=== PATIENT | female | born 1940 | race Caucasian/White ===

== ENCOUNTER → 2020-12-23 09:07 | Outpatient (BNVA) | payer MEDICARE, BC, SELFPAY | PROVIDERS: PCP Family Medicine; Visit Provider Family Medicine | DX: R30.0 Dysuria (principal) | CPT/HCPCS: 81000 ==

== ENCOUNTER 2021-01-02 20:18 | Observation (INO) | payer MEDICARE, BC, SELFPAY ==
[2021-01-02] VITALS (7 sets, daily range): BP systolic 144–170; BP diastolic 53–62; PULSE 63–75; RESP 16–18; O2SAT 94–100; BMI 27.4
--- NOTE | 2021-01-02 20:25 | ECG_ITS ---
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 Measurements Intervals [place] Rate: 68 P: [place]: QRS: -50 QRSD: 105 T: 66 QT: 378 QTc: 403 Interpretive Statements SINUS RHYTHM WITH PAC'S LEFT ANTERIOR FASCICULAR BLOCK [QRS AXIS <= -45, QR IN I, RS IN II] POSSIBLE ANTERIOR MYOCARDIAL INFARCTION , PROBABLY OLD [30 ms Q WAVE IN V3/V4, OR R < 0.2 mV IN V4] No previous ECG available for comparison Electronically Signed On 01-05-2021 21:45:55 CDT by Hawa Manzanares M.D. [id number]
--- NOTE | 2021-01-02 20:36 | CTR_ITS ---
PROCEDURE INFORMATION: Exam: CT Head Without Contrast Exam date and time: 01/02/2021 8:36 PM Age: 80 years old Clinical indication: Dizziness and syncope and collapse; Patient HX: Syncope with dizziness and altered gait. ; Additional info: Evaluate for mass TECHNIQUE: Imaging protocol: Computed tomography of the head without contrast. Radiation optimization: All CT scans at this facility use at least one of these dose optimization techniques: automated exposure control; mA and/or kV adjustment per patient size (includes targeted exams where dose is matched to clinical indication); or iterative reconstruction. COMPARISON: No relevant prior studies available. RADIATION DOSE METRICS: Total DLP (mGy-cm): 772.99 FINDINGS: Brain: There is mild cerebral atrophy. There is mild diffuse heterogeneity of the white matter attenuation, consistent with chronic white matter ischemic changes. No intracranial hemorrhage. No intracranial mass identified. No midline shift of the brain. Bosch matter and white matter interfaces are preserved. Cerebral ventricles: No ventriculomegaly. Paranasal sinuses: Visualized sinuses are unremarkable. No fluid levels. Mastoid air cells: Visualized mastoid air cells are well aerated. Orbital cavity: Symmetric orbits. Bilateral lens replacements. Bones/joints: Unremarkable. No acute fracture. Soft tissues: Unremarkable. CT/CT head wo con* [id number] IMPRESSION: 1. Negative for acute intracranial abnormality. 2. Negative for intracranial mass. Radiation Dose CTDIVOL = (mGy): DLP = 772.99 (mGy-cm)
--- NOTE | 2021-01-02 20:36 | CTR_ITS ---
PROCEDURE INFORMATION: Exam: CT Angiography Head With Contrast, Arteriography Exam date and time: 01/02/2021 8:36 PM Age: 80 years old Clinical indication: Syncope and collapse; Patient HX: Syncope with dizziness and altered gait. ; Additional info: Gait instability TECHNIQUE: Imaging protocol: Computed tomography angiography of the head with contrast. Exam focused on the arteries. 3D rendering (Not supervised by radiologist): MIP and/or 3D reconstructed images were created by the technologist. Radiation optimization: All CT scans at this facility use at least one of these dose optimization techniques: automated exposure control; mA and/or kV adjustment per patient size (includes targeted exams where dose is matched to clinical indication); or iterative reconstruction. Contrast material: VISI 320; Contrast volume: 95 ml; Contrast route: INTRAVENOUS (IV); COMPARISON: CT head wo con* [id number] 01/02/2021 8:42 PM RADIATION DOSE METRICS: Total DLP (mGy-cm): 1906.41 FINDINGS: ANTERIOR CIRCULATION: Right internal carotid artery: Unremarkable. Intracranial segment is patent with no significant stenosis. No aneurysm. Right middle cerebral artery: Unremarkable. No occlusion or significant stenosis. No aneurysm. Right anterior cerebral artery: Unremarkable. No occlusion or significant stenosis. No aneurysm. Left internal carotid artery: Unremarkable. Intracranial segment is patent with no significant stenosis. No aneurysm. Left middle cerebral artery: Unremarkable. No occlusion or significant stenosis. No aneurysm. Left anterior cerebral artery: Unremarkable. No occlusion or significant stenosis. No aneurysm. POSTERIOR CIRCULATION: Right vertebral artery: Unremarkable. No occlusion or significant stenosis. No aneurysm. Left vertebral artery: Unremarkable. No occlusion or significant stenosis. No aneurysm. Basilar artery: Unremarkable. No occlusion or significant stenosis. No aneurysm. Right posterior cerebral artery: Unremarkable. No occlusion or significant stenosis. No aneurysm. Left posterior cerebral artery: Unremarkable. No occlusion or significant stenosis. No aneurysm. Brain: No definite mass, mass effect, or midline shift. Cerebral ventricles: No ventriculomegaly. Bones/joints: Unremarkable. No acute fracture. Soft tissues: Unremarkable. IMPRESSION: No intracranial large arterial vessel significant stenosis or occlusion. PROCEDURE INFORMATION: Exam: CT Angiography Neck With Contrast Exam date and time: 01/02/2021 8:36 PM Age: 80 years old Clinical indication: Syncope and collapse; Patient HX: Syncope with dizziness and altered gait. ; Additional info: Gait instability TECHNIQUE: Imaging protocol: Computed tomography angiography of the neck with contrast. 3D rendering (Not supervised by radiologist): MIP and/or 3D reconstructed images were created by the technologist. Radiation optimization: All CT scans at this facility use at least one of these dose optimization techniques: automated exposure control; mA and/or kV adjustment per patient size (includes targeted exams where dose is matched to clinical indication); or iterative reconstruction. Contrast material: VISI 320; Contrast volume: 95 ml; Contrast route: INTRAVENOUS (IV); COMPARISON: CT head wo con* [id number] 01/02/2021 8:42 PM RADIATION DOSE METRICS: Total DLP (mGy-cm): 1906.41 FINDINGS: Right common carotid artery: No stenosis. No dissection or occlusion. Right internal carotid artery: No stenosis of the extracranial segment. No dissection or occlusion. Right external carotid artery: No occlusion or stenosis of the origin. Left common carotid artery: No stenosis. No dissection or occlusion. Left internal carotid artery: No stenosis of the extracranial segment. No dissection or occlusion. Left external carotid artery: No occlusion or stenosis of the origin. Right vertebral artery: No stenosis. No dissection or occlusion. Left vertebral artery: No stenosis. No dissection or occlusion. Left subclavian artery: Small volume eccentric noncalcified plaque in the proximal left subclavian artery. Mild stenosis less than 50%. Thyroid: Small subcentimeter nodules throughout the thyroid lobes. No dedicated follow-up recommended. No thyroid gland enlargement. Soft tissues: Normal. No significant soft tissue swelling. Bones/joints: No acute fracture. Lungs: Mild severity emphysema. CT/CT angio headneck* [id number] IMPRESSION: No carotid artery stenosis or vessel occlusion in the neck. COMMENTS: Consistent with the [employer]'s Incidental Findings Committee white paper (J Am Destiny Radiol 2015): In patients aged 35 years and older with an incidental thyroid nodule equal to or greater than 1.[address], MRI or extrathyroidal US, further evaluation with dedicated thyroid US is recommended for patients with normal life expectancy and without comorbidities. For smaller nodules without suspicious features, no further evaluation or follow up is recommended. REFERENCES: NASCET CRITERIA. The degree of internal carotid artery stenosis is based on NASCET criteria. Normal is no stenosis. Mild is less than 50% stenosis. Moderate is 50-69% stenosis. Severe is 70% to 99% stenosis. Total occlusion is no detectable patent lumen. Radiation Dose CTDIVOL = (mGy): DLP = 1906.41~1906.41 (mGy-cm)
[2021-01-02] MEDS: iodixanol 320 mg/mL 100mL Btl IV (20:48)
[2021-01-02 20:57] LABS: Basophils # 0.1 10^3/uL (0.0-0.1); Eosinophils # 0.1 10^3/uL (0.0-0.8); Eosinophils % 1.1 %; Hematocrit 44.9 % (37.0-47.0); Hemoglobin 14.8 g/dL (11.5-15.3); Lymphocytes # 4.5 10^3/uL (0.8-4.8); Lymphocytes % 55.6 %; Mean Corpuscular Hemoglobin 31.4 pg (28.0-34.0); Mean Corpuscular Volume 95.1 fl (81-99); Mean Platelet Volume 10.6 fL (7.4-10.4); Monocytes # 0.6 10^3/uL (0.2-0.9); Monocytes % 7.6 %; Neutrophils # 2.77 10^3/uL (1.8-7.7); Neutrophils % 34.6 %; Nucleated Red Blood Cells % 0 %; Platelet Count 236 10^3/cmm (130-400); Red Blood Count 4.72 10^6/uL (4.1-5.3); Red Cell Distribution Width 12.6 % (12.1-15.1)
[2021-01-02 21:13] LABS: Troponin T (5th) Once 11 ng/L (0-10)
[2021-01-02 21:14] LABS: Alanine Aminotransferase 13 U/L (0-33); Albumin Level 4.5 g/dL (3.5-5.2); Alkaline Phosphatase 102 IU/L (35-105); Anion Gap 18.2 (5-19); Aspartate Amino Transferase 20 U/L (0-32); Blood Urea Nitrogen 12 mg/dL (8-23); Calcium 10.5 mg/dL (8.5-10.5); Carbon Dioxide 23 mmol/L (22-29); Chloride 103 mmol/L (98-107); Glucose 118 mg/dL (65-115); Lipase 40 U/L (13-60); Osmolality Calculated 291 mOsm/kg (285-295); Potassium 4.2 mmol/L (3.5-5.1); Sodium 140 mmol/L (136-145); Total Bilirubin 0.3 mg/dL (0.15-1.2); Total Protein 7.5 g/dL (6.6-8.7)
--- NOTE | 2021-01-02 21:14 | W.ED.GENADLT ---
HPI - General Adult General: Chief complaint: Syncope Stated complaint: in and out of consciousness Time Seen by Provider: 01/02/21 20:24 History of Present Illness: HPI narrative: HPI: [80]yo patient w/ hx of HTN BIBA for concern for s/p acute episodes of syncope x 3 which occured 30 minutes ago while patient was sitting down outside and watching her grandon's baseball game. The episodes patient's daughter who reports that patient was going in and out of consciousness and was confused after. Patient has no history of seizures. Patient was noted to lose her bladder. Patient had no complaints of chest pain shortness breath or palpitation during these episodes. On arrival, the patient denies any chest pain, SOB, palpitations, focal neurological weakness in the arms or legs. Patient could not recall exactly what happened, but denied any post-ictal confusion, bowel or bladder incontinence after the incident. Patient denies any prior episode of syncope. Denies any chest pain, shortness, palpitation, abdominal pain or back pain prior to the episode of syncope. No recent exertional chest pain or shortness of breath. Denies vertigo or disequilibrium. The episode of syncope was not preceded by any prodromes including nausea, pallor, or diaphoresis. No symptoms of diarrhea, hematuria, dysuria, melena or hematochezia. No prior documented hx of anemia requiring blood transfusions, VTE, or aortic aneurysm. Onset: 30 minutes ago Duration: x 3 episodes Location: outside Severity: moderate Review of Systems Narrative: Constitutional: No fever, no chills. HEENT: No vision changes CV: No chest pain, no palpitations PULM: No productive cough, no dyspnea. GI: No abdominal pain, no N/V/D. : No Dysuria MSKEL: No muscle pain SKIN: No new rashes, no lesions. NEURO: No headache, no focal weakness. HEME: No visible bruises PSYCH: Normal mood PFSH ED PFSH: Medical History Osteoarthritis Surgical History Hx laparoscopic cholecystectomy Hx of colonoscopy Hx of hysterectomy JOHANA-BSO Hx of tonsillectomy Family History Mother , natural causes Diabetes Congestive heart failure Brother , Older past away of TB Diabetes both brothers Father FH: heart attack Social History Smoking and tobacco status: never smoked Alcohol intake: never Adopted: No Household members: children Housing: House Marital status: / Number of children: 4 Number of grandchildren: 12 Highest education level completed: Master's Degree service: No Current occupational status: retired Physical Exam Narrative: EXAM NARRATIVE: Head: Atraumatic Eyes: PERRL, conjunctiva without injection, eyes tracking ENT: Mucous membrane moist NECK: Supple without lymphadenopathy, no nuchal rigidity LUNGS: LCTAB CV: RRR ABDOMEN: Soft, nontender in all quadrants, no guarding or rebound tenderness, no CVA or flank tenderness bilaterally EXTREMITY: Normal ROM SKIN: No rash or erythema NEURO: Mental status: A/Ox3 CN II-XII tested and intact. Sensation intact to sharp/dull differentiation in all extremities. Motor: Normal tone and bulk. No abnormal movements appreciated. No pronator drift. Strength tested and 5/5 in bilateral wrist flexion/extension, elbow flexion/extension, shoulder abduction, straight leg raise, knee flexion/extension, ankle dorsiflexion/plantarflexion. Patient ambulates with a steady gait. Coordination: Finger to nose and heel to gonsalez testing intact bilaterally. PSYCH: Cooperative mood and affect Course Vital Signs: Vital signs: Vital Signs Temperature 98.2 F 01/03/21 07:51 Pulse Rate 74 01/03/21 07:51 Respiratory Rate 15 01/03/21 07:51 Blood Pressure 136/60 01/03/21 07:51 Pulse Oximetry 96 01/03/21 07:51 MDM - General Adult MDM Narrative: Medical decision making narrative: [80]yo patient w/ hx of HTN presenting to the ED with syncope x 3 episodes. -chest pain, -SOB, -palpitations. Currently symptom free. HDS. Neurologically intact. Given history, exam and workup, presentation not consistent with seizures given short time course, no postictal state, no seizure activity. Low suspicion for acute neurologic catastrophes to include ICH given lack of trauma, risk factors for bleeding diathesis. Low suspicion for vascular catastrophes to include PE, thoracic aortic dissection, AAA rupture. Presentation not consistent with acute life threatening arrhythmia, structural heart disease, electrical conduction abnormalities, or ACS. Workup: CBC, BMP, Troponin, ECG,CT brain Intervention: IVF, PO challenge, and serial reassessment EKG: No e/o STEMI. No evidence of Brugada?s sign, delta wave, epsilon wave, significantly prolonged QTc, or malignant arrhythmia. EKG showing NSR at HT of [68]. Normal axis. No ST elevations/depressions to suggest coronary occlusion. Normal ID, QRS, QT intervals. +Occasional PAC Hgb: 14 [9:51pm] On reassessment, patient continues to HDS. No acute complaints currently. No syncopal episode in the ER. Hs troponin of 11. 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 Patient has been able to ambulate in the ED without issues. No suspicion of neurogenic syncope at this time. However, given age, cardiovascular risk factors and co-rmbities, the patient will need inpatient workup for cardiac syncope. Patient agrees with the plan for inpatient admission at this time. Disposition: Admit to medicine, telemetry bed for cardiac monitoring and cardiology review. Lab Data: Labs: Lab Results 01/02/21 01/02/21 01/02/21 Range/Units 20:00 20:00 20:00 WBC 8.0 (4.0-10.0) 10^3/ uL RBC 4.72 (4.1-5.3) 10^6/u L Hgb 14.8 (11.5-15.3) g/dL Hct 44.9 (37.0-47.0) % MCV 95.1 (81-99) fl MCH 31.4 (28.0-34.0) pg MCHC 33.0 (30.0-36.0) g/dL RDW 12.6 (12.1-15.1) % Plt Count 236 (130-400) 10^3/c mm MPV 10.6 H (7.4-10.4) fL Neut % (Auto) 34.6 % Lymph % (Auto) 55.6 % Armstrong % (Auto) 7.6 % Eos % (Auto) 1.1 % Baso % (Auto) 1.0 % Neut # (Auto) 2.77 (1.8-7.7) 10^3/u L Lymph # (Auto) 4.5 (0.8-4.8) 10^3/u L Armstrong # (Auto) 0.6 (0.2-0.9) 10^3/u L Eos # (Auto) 0.1 (0.0-0.8) 10^3/u L Baso # (Auto) 0.1 (0.0-0.1) 10^3/u L Nucleated RBC % (a uto) 0 % Nucleated RBCs # 0.0 /100WBC D-Dimer (0-0.59) ug/mIFE U Sodium 140 (136-145) mmol/L Potassium 4.2 (3.5-5.1) mmol/L Chloride 103 (98-107) mmol/L Carbon Dioxide 23 (22-29) mmol/L Anion Gap 18.2 (5-19) BUN 12 (8-23) mg/dL Creatinine 0.8 (0.5-0.9) mg/dL GFR Calculation Not Reportable Glucose 118 H (65-115) mg/dL Calculated Osmolal ity 291 (285-295) mOsm/k g Calcium 10.5 (8.5-10.5) mg/dL Total Bilirubin 0.3 (0.15-1.2) mg/dL AST 20 (0-32) U/L ALT 13 (0-33) U/L Alkaline Phosphata se 102 (35-105) IU/L Troponin T Gen 5 n g/L 11 H (0-10) ng/L Total Protein 7.5 (6.6-8.7) g/dL Albumin 4.5 (3.5-5.2) g/dL Globulin 3.0 (1.3-4.6) g/dL Lipase 40 (13-60) U/L SARS-CoV-2 Ag (Rap id) (Negative) 01/02/21 01/02/21 Range/Units 20:00 21:55 WBC (4.0-10.0) 10^3/ uL RBC (4.1-5.3) 10^6/u L Hgb (11.5-15.3) g/dL Hct (37.0-47.0) % MCV (81-99) fl MCH (28.0-34.0) pg MCHC (30.0-36.0) g/dL RDW (12.1-15.1) % Plt Count (130-400) 10^3/c mm MPV (7.4-10.4) fL Neut % (Auto) % Lymph % (Auto) % Armstrong % (Auto) % Eos % (Auto) % Baso % (Auto) % Neut # (Auto) (1.8-7.7) 10^3/u L Lymph # (Auto) (0.8-4.8) 10^3/u L Armstrong # (Auto) (0.2-0.9) 10^3/u L Eos # (Auto) (0.0-0.8) 10^3/u L Baso # (Auto) (0.0-0.1) 10^3/u L Nucleated RBC % (a uto) % Nucleated RBCs # /100WBC D-Dimer <= 0.27 (0-0.59) ug/mIFE U Sodium (136-145) mmol/L Potassium (3.5-5.1) mmol/L Chloride (98-107) mmol/L Carbon Dioxide (22-29) mmol/L Anion Gap (5-19) BUN (8-23) mg/dL Creatinine (0.5-0.9) mg/dL GFR Calculation Glucose (65-115) mg/dL Calculated Osmolal ity (285-295) mOsm/k g Calcium (8.5-10.5) mg/dL Total Bilirubin (0.15-1.2) mg/dL AST (0-32) U/L ALT (0-33) U/L Alkaline Phosphata se (35-105) IU/L Troponin T Gen 5 n g/L (0-10) ng/L Total Protein (6.6-8.7) g/dL Albumin (3.5-5.2) g/dL Globulin (1.3-4.6) g/dL Lipase (13-60) U/L SARS-CoV-2 Ag (Rap id) Negative (Negative) Imaging Data^: Other Imaging: Radiologist's impression: [address] [id number] Scan ReportSigned Patient: Taran Montenegro #: [id number]: 1940Acct#:[id number]/Sex: 80 / FADM Date: 01/02/21Loc: ERRoom/Bed:Attending Dr: Ordering Provider/Ordering MD: Ruby Penny MD Date of Service: 01/02/21 Procedure(s): CT angio headneck* [id number] Accession Number(s): [id number] Report Number: [id number] PROCEDURE INFORMATION: Exam: CT Angiography Head With Contrast, Arteriography Exam date and time: 01/02/2021 8:36 PM Age: 80 years old Clinical indication: Syncope and collapse; Patient HX: Syncope with dizziness and altered gait. ; Additional info: Gait instability TECHNIQUE: Imaging protocol: Computed tomography angiography of the head with contrast. Exam focused on the arteries. 3D rendering (Not supervised by radiologist): MIP and/or 3D reconstructed images were created by the technologist. Radiation optimization: All CT scans at this facility use at least one of these dose optimization techniques: automated exposure control; mA and/or kV adjustment per patient size (includes targeted exams where dose is matched to clinical indication); or iterative reconstruction. Contrast material: VISI 320; Contrast volume: 95 ml; Contrast route: INTRAVENOUS (IV); COMPARISON: CT head wo con* [id number] 01/02/2021 8:42 PM RADIATION DOSE METRICS: Total DLP (mGy-cm): 1906.41 FINDINGS: ANTERIOR CIRCULATION: Right internal carotid artery: Unremarkable. Intracranial segment is patent with no significant stenosis. No aneurysm. Right middle cerebral artery: Unremarkable. No occlusion or significant stenosis. No aneurysm. Right anterior cerebral artery: Unremarkable. No occlusion or significant stenosis. No aneurysm. Left internal carotid artery: Unremarkable. Intracranial segment is patent with no significant stenosis. No aneurysm. Left middle cerebral artery: Unremarkable. No occlusion or significant stenosis. No aneurysm. Left anterior cerebral artery: Unremarkable. No occlusion or significant stenosis. No aneurysm. POSTERIOR CIRCULATION: Right vertebral artery: Unremarkable. No occlusion or significant stenosis. No aneurysm. Left vertebral artery: Unremarkable. No occlusion or significant stenosis. No aneurysm. Basilar artery: Unremarkable. No occlusion or significant stenosis. No aneurysm. Right posterior cerebral artery: Unremarkable. No occlusion or significant stenosis. No aneurysm. Left posterior cerebral artery: Unremarkable. No occlusion or significant stenosis. No aneurysm. Brain: No definite mass, mass effect, or midline shift. Cerebral ventricles: No ventriculomegaly. Bones/joints: Unremarkable. No acute fracture. Soft tissues: Unremarkable. IMPRESSION: No intracranial large arterial vessel significant stenosis or occlusion. PROCEDURE INFORMATION: Exam: CT Angiography Neck With Contrast Exam date and time: 01/02/2021 8:36 PM Age: 80 years old Clinical indication: Syncope and collapse; Patient HX: Syncope with dizziness and altered gait. ; Additional info: Gait instability TECHNIQUE: Imaging protocol: Computed tomography angiography of the neck with contrast. 3D rendering (Not supervised by radiologist): MIP and/or 3D reconstructed images were created by the technologist. Radiation optimization: All CT scans at this facility use at least one of these dose optimization techniques: automated exposure control; mA and/or kV adjustment per patient size (includes targeted exams where dose is matched to clinical indication); or iterative reconstruction. Contrast material: VISI 320; Contrast volume: 95 ml; Contrast route: INTRAVENOUS (IV); COMPARISON: CT head wo con* [id number] 01/02/2021 8:42 PM RADIATION DOSE METRICS: Total DLP (mGy-cm): 1906.41 FINDINGS: Right common carotid artery: No stenosis. No dissection or occlusion. Right internal carotid artery: No stenosis of the extracranial segment. No dissection or occlusion. Right external carotid artery: No occlusion or stenosis of the origin. Left common carotid artery: No stenosis. No dissection or occlusion. Left internal carotid artery: No stenosis of the extracranial segment. No dissection or occlusion. Left external carotid artery: No occlusion or stenosis of the origin. Right vertebral artery: No stenosis. No dissection or occlusion. Left vertebral artery: No stenosis. No dissection or occlusion. Left subclavian artery: Small volume eccentric noncalcified plaque in the proximal left subclavian artery. Mild stenosis less than 50%. Thyroid: Small subcentimeter nodules throughout the thyroid lobes. No dedicated follow-up recommended. No thyroid gland enlargement. Soft tissues: Normal. No significant soft tissue swelling. Bones/joints: No acute fracture. Lungs: Mild severity emphysema. CT/CT angio headneck* [id number] IMPRESSION: No carotid artery stenosis or vessel occlusion in the neck. COMMENTS: Consistent with the [employer]'s Incidental Findings Committee white paper (J Am Destiny Radiol 2015): In patients aged 35 years and older with an incidental thyroid nodule equal to or greater than 1.[address], MRI or extrathyroidal US, further evaluation with dedicated thyroid US is recommended for patients with normal life expectancy and without comorbidities. For smaller nodules without suspicious features, no further evaluation or follow up is recommended. REFERENCES: NASCET CRITERIA. The degree of internal carotid artery stenosis is based on NASCET criteria. Normal is no stenosis. Mild is less than 50% stenosis. Moderate is 50-69% stenosis. Severe is 70% to 99% stenosis. Total occlusion is no detectable patent lumen. 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
[2021-01-02 22:26] LABS: SARS Covid-2 Antigen Negative (Negative)
--- NOTE | 2021-01-02 22:35 | ECG_ITS ---
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 Measurements Intervals [place] Rate: 66 P: 73 IN: 159 QRS: -53 QRSD: 100 T: 68 QT: 373 QTc: 393 Interpretive Statements SINUS RHYTHM WITH OCCASIONAL SUPRAVENTRICULAR PREMATURE COMPLEXES LEFT ANTERIOR FASCICULAR BLOCK [QRS AXIS <= -45, QR IN I, RS IN II] NONSPECIFIC T-WAVE ABNORMALITY Compared to ECG 01/03/2021 01:18:49 T-wave abnormality now present Electronically Signed On 01-05-2021 21:43:37 CDT by Hawa Manzanares M.D. [id number]
[2021-01-02 23:21] LABS: Troponin 5 2HR 10.54 ng/L (0-10)
--- NOTE | 2021-01-02 23:38 | XRR_ITS ---
PROCEDURE INFORMATION: Exam: XR Chest Exam date and time: 01/02/2021 11:38 PM Age: 80 years old Clinical indication: Chest pressure; Prior surgery; Surgery type: Gb; Patient HX: Chest pain. TECHNIQUE: Imaging protocol: XR of the chest. Views: 1 view. COMPARISON: CT angio headneck* [id number] 01/02/2021 8:45 PM FINDINGS: Lungs: Unremarkable. No consolidation. Pleural spaces: Unremarkable. No pleural effusion. No pneumothorax. Heart/Mediastinum: Unremarkable. No cardiomegaly. Bones/joints: Unremarkable. XR/XR chest 1V portable [id number] IMPRESSION: No acute findings.
[2021-01-03 00:08] LABS: D Dimer <= 0.27 ug/mIFEU (0-0.59)
[2021-01-03 00:18] VITALS: BP 175/75; PULSE 72; RESP 21; O2SAT 96
[2021-01-03] MEDS: sodium chloride 0.9% 1,000 ML 75 ML IV (00:33)
[2021-01-03] MEDS: enoxaparin 40 mg/0.4 mL Syringe SUBCUT (00:33)
--- NOTE | 2021-01-03 02:29 | PM.HP ---
Providers/Chief Complaint Admitting Physician: Marleny Varma MD Primary Care Provider: Pearl Brink DO Chief Complaint: in and out of consciousness History of Present Illness Taran Montenegro is a 80 year old female with recently diagnosed early dementia presenting today with an episode of loss of consciousness while she was at her grandson's game. States she was sitting in the bleachers, had overwhelming urge to lay down her head and wanted her daughter to take her to the car. Denies any dizziness, palpitations, chest pain or dyspnea at the time. She Does not recall subsequent events. her daughter reported that she lost consciousness, had urinary incontinence, no confusion thereafter. No h/o seizure disorder. Ct head without acuet changes. Review of Systems General: Reports: 10 or more systems reviewed and unremarkable except in HPI and below Const: Denies: fever(s), chills or body aches Eyes: Denies: change in vision, blurry vision or photophobia ENMT: Reports: hoarseness; Denies: throat pain, enlarged tonsils, odynophagia or nasal congestion Card: Denies: chest pain, palpitations, irregular heart rhythm, edema, swelling of feet/ankles, lightheadedness, pre-syncope, dyspnea on exertion or orthopnea Resp: Denies: dyspnea, productive cough, non-productive cough, wheezing, stridor, pain on inspiration, change in phlegm color, hemoptysis or chest congestion GI: Denies: abdominal pain, nausea, vomiting, hematemesis, coffee ground emesis, dysphagia, heartburn, diarrhea, constipation, GI cramping, change in stool character, hematochezia or melena : Denies: flank pain, difficulty voiding, dysuria, urinary frequency, urinary urgency, urinary hesitancy or hematuria Musc: Denies: neck pain, back pain, extremity pain, joint swelling, joint warmth or deformity Neuro: Denies: headache(s), numbness in extremities, weakness in extremities, sensory changes, difficulty walking, frequent falls, dizziness, vertigo, behavioral changes, Slurred speech present or seizure-like activity Psych: Denies: anxiety, depression, suicidal ideation or homicidal ideation Endo: Denies: polyuria, polydipsia, tired all the time, cold intolerance or hot flashes Anjel/Lymph: Denies: easy bruising or easy bleeding Medications/Allergies Home Medications Medication Instructions Recorded Confirmed Last Taken Type vitamin A-vit C-vit E-zinc-Cu 2 tab PO BID 12/22/20 01/02/21 01/01/21 History tablet Aricept 5 mg PO BEDTIME 01/02/21 01/02/21 01/01/21 History acetaminophen [Tylenol] 325 - 650 mg PO QID PRN 01/02/21 01/02/21 01/02/21 History djcqipap-pww-kfvh-FA-lutein 1 tab PO DAILY 01/02/21 01/02/21 01/01/21 History [Multivitamin Women 50 Plus] Allergies Allergy/AdvReac Type Severity Reaction Status Date / Time No Known Allergies Allergy Verified 12/22/20 08:57 PFSH Acute PFSH: Medical History Osteoarthritis Surgical History Hx laparoscopic cholecystectomy Hx of colonoscopy Hx of hysterectomy JOHANA-BSO Hx of tonsillectomy Family History Mother , natural causes Diabetes Congestive heart failure Brother , Older past away of TB Diabetes both brothers Father FH: heart attack Social History Smoking and tobacco status: never smoked Alcohol intake: never Adopted: No Household members: children Housing: House Marital status: / Number of children: 4 Number of grandchildren: 12 Highest education level completed: Master's Degree service: No Current occupational status: retired Vitals/I&O/Wt Last Vital Signs Pulse 72 01/03/21 00:18 Resp 21 H 01/03/21 00:18 BP 175/75 01/03/21 00:18 Pulse Ox 96 01/03/21 00:18 Weight last 48 hrs Weight 74.933 kg Weight 72.575 kg Physical Exam Narrative: EXAM NARRATIVE: General: No acute distress, AO x3 HEENT: PERRLA, pupils bilaterally equal and reactive, pallors not present Chest: Normal vesicular breath sounds, no added sounds, equal good air entry bilaterally CVS: S1-S2 regular, no murmurs, no tachycardia, no gallops, no rubs Abdomen: Soft, nontender, no organomegaly, bowel sounds present Neuro: No focal deficits, no facial deformity, AO x3, power 5/5 in all limbs Extremities: no edema, cyanosis, clubbing Data : 01/02/21 20:00 01/02/21 20:00 A&P Assessment and plan (1) Syncope and collapse: Presenting today with c/o transient LOC without post ictal period, appearing to be consistent with syncopal episode. Less concerning for seizures. Admit to observation Telemetry monitoring to r/o underlying arrhythmias. EKG without acute ST-T wave changes. Troponin 10, unlikely ACS. Carotid artery duplex and echocardiogram no focal neurological deficits at exam, denies any current dizziness check orthostatic blood pressure check TSH, D dimer Status: Acute Attestations Medical Necessity Statement*: observation admission for syncope, cause under evaluation Coding Level of Care Code Acute Environmental Compliance Inspector for [facility] Diagnoses Syncope and collapse R55
--- NOTE | 2021-01-03 02:35 | ECG_ITS ---
[facility] Test Date: 2021-01-03 Pat Name: Taran Montenegro Department: Room: 112 Gender: Female Fpga Engineer: : 1940 Requested By: Ruby Penny Order Number: [id number] Jany MD: Hawa Manzanares M.D. Measurements Intervals [place] Rate: 64 P: 65 DC: 146 QRS: -47 QRSD: 99 T: 62 QT: 377 QTc: 390 Interpretive Statements SINUS RHYTHM LOW QRS VOLTAGE IN PRECORDIAL LEADS [QRS DEFLECTION < 1.0 mV IN CHEST LEADS] LEFT ANTERIOR FASCICULAR BLOCK [QRS AXIS <= -45, QR IN I, RS IN II] Compared to ECG 01/02/2021 20:58:54 Low QRS voltage now present Atrial fibrillation no longer present Myocardial infarct finding no longer present Electronically Signed On 01-05-2021 21:44:30 CDT by Hawa Manzanares M.D. [id number]
--- NOTE | 2021-01-03 03:13 | PC.NURSE ---
Admit Note Around 2330: Patient admitted to C[facility] from ED via wheelchair. Covering service notified. Patient presents with syncopal episode. Orders reviewed & will continue to monitor. Patient and/or promotions representative oriented to environment, equipment, and informed of the following as found in the admission booklet: patient rights & responsibilities, visitor policy, hand and respiratory hygiene practice. Other education includes: medication orders, activity, reportable signs and symptoms. Patient and/or promotions representative verbalized understanding of all teaching.
[2021-01-03 03:53] VITALS: BP 168/75; PULSE 68; RESP 20; TEMP 36.6; O2SAT 97
[2021-01-03 05:32] LABS: Troponin 5 6HR 11.14 ng/L (0-10)
[2021-01-03 05:37] VITALS: PULSE 69
[2021-01-03 05:45] LABS: Thyroid Stimulating Hormone 1.97 uIU/mL (0.27-4.20)
[2021-01-03 07:51] VITALS: BP 136/60; PULSE 74; RESP 15; TEMP 36.8; O2SAT 96
[2021-01-03 08:00] VITALS: BP 156/107; BP 163/91; BP 183/70
[2021-01-03] MEDS: acetaminophen 325 mg Tablet 650 MG PO (08:40)
--- NOTE | 2021-01-03 09:58 | P.DS_ITS ---
Discharge Providers Date of Admission: 01/02/21 22:32 Date of Discharge: January 03, 2021 Attending Provider at Admission: Marleny Varma MD Attending Provider at Discharge: Roger Diallo MD Primary Care Provider: Pearl Brink DO Diagnoses at Discharge Discharge Diagnosis (1) Syncope and collapse: Status: Acute Reason for Visit Reason for Visit: in and out of consciousness Hospital Course Hospital Course Taran Montenegro is a 80 year old female with recently diagnosed early dementia presenting today with an episode of loss of consciousness while she was at her grandson's game. States she was sitting in the bleachers, had overwhelming urge to lay down her head and wanted her daughter to take her to the car. Denies any dizziness, palpitations, chest pain or dyspnea at the time. She Does not recall subsequent events. her daughter reported that she lost consciousness, had urinary incontinence, no confusion thereafter. No h/o seizure disorder. Ct head without. Patient admitted to hospital for further evaluation of syncope. She did not have any further episodes during hospitalization. She remained ambulatory. Orthostatics were checked and were negative. Further imaging studies regarding head and neck were done and were negative. She was found to have high blood pressure during hospitalization for which she was started on antihypertensives. She is advised to follow-up with her primary care provider within next 2 weeks. She is advised to maintain a blood pressure diary checking her blood pressure twice daily and follow-up with her primary care provider for further adjustment of antihypertensives. Various causes of syncope including heat stroke, high blood pressure, new Aricept were discussed in detail with daughter at bedside and she verbalized understanding. Patient was also advised to get Holter monitor to rule out occult arrhythmias. Patient has been made an appointment for Holter monitoring on coming Tuesday. Patient is been discharged in hemodynamically stable condition with above advices. Physical Exam Narrative: EXAM NARRATIVE: General: No acute distress, AO x3 HEENT: PERRLA, pupils bilaterally equal and reactive, pallors not present Chest: Normal vesicular breath sounds, no added sounds, equal good air entry bilaterally CVS: S1-S2 regular, no murmurs, no tachycardia, no gallops, no rubs Abdomen: Soft, nontender, no organomegaly, bowel sounds present Neuro: No focal deficits, no facial deformity, AO x3, power 5/5 in all limbs Extremities: no edema, cyanosis, clubbing Discharge Data Data Completed and Pending: Completed Studies During Hospitalization Category Date Time Status CT angio headneck * [id number] Urge nt Cat Scan 01/02/21 20:[address] head wo con* [id number] Urgent Cat Scan 01/02/21 20:36 Completed XR chest 1V [facility] ble [id number] Routine Exams 01/02/21 23:38 Completed Pending at discharge Category Date Time Status CV. echo complete * [id number] Routine Ultrasound 01/03/21 23:38 Ordered Labs from last 24 hours 01/03/21 01/03/21 01/02/21 04:40 04:40 22:53 WBC RBC Hgb Hct MCV MCH MCHC RDW Plt Count MPV Neut % (Auto) Lymph % (Auto) [place] % (Auto) Eos % (Auto) Baso % (Auto) Neut # (Auto) Lymph # (Auto) [place] # (Auto) Eos # (Auto) Baso # (Auto) Nucleated RBC % (a uto) Nucleated RBCs # D-Dimer Sodium Potassium Chloride Carbon Dioxide Anion Gap BUN Creatinine GFR Calculation Glucose Calculated Osmolal ity Calcium Total Bilirubin AST ALT Alkaline Phosphata se Troponin T Gen 5 n g/L Troponin T 120 Min [place] 10.54 H Delta Troponin T Not Reportable Troponin T Hi Sens 6Hr 11.14 H Troponin T Hi Sens 6Hr Delta Not Reportable Total Protein Albumin Globulin Lipase TSH 1.97 SARS-CoV-2 Ag (Rap id) 01/02/21 01/02/21 01/02/21 21:55 20:00 20:00 WBC RBC Hgb Hct MCV MCH MCHC RDW Plt Count MPV Neut % (Auto) Lymph % (Auto) [place] % (Auto) Eos % (Auto) Baso % (Auto) Neut # (Auto) Lymph # (Auto) [place] # (Auto) Eos # (Auto) Baso # (Auto) Nucleated RBC % (a uto) Nucleated RBCs # D-Dimer <= 0.27 Sodium Potassium Chloride Carbon Dioxide Anion Gap BUN Creatinine GFR Calculation Glucose Calculated Osmolal ity Calcium Total Bilirubin AST ALT Alkaline Phosphata se Troponin T Gen 5 n g/L 11 H Troponin T 120 Min [place] Delta Troponin T Troponin T Hi Sens 6Hr Troponin T Hi Sens 6Hr Delta Total Protein Albumin Globulin Lipase TSH SARS-CoV-2 Ag (Rap id) Negative 01/02/21 01/02/21 20:00 20:00 WBC 8.0 RBC 4.72 Hgb 14.8 Hct 44.9 MCV 95.1 MCH 31.4 MCHC 33.0 RDW 12.6 Plt Count 236 MPV 10.6 H Neut % (Auto) 34.6 Lymph % (Auto) 55.6 [place] % (Auto) 7.6 Eos % (Auto) 1.1 Baso % (Auto) 1.0 Neut # (Auto) 2.77 Lymph # (Auto) 4.5 [place] # (Auto) 0.6 Eos # (Auto) 0.1 Baso # (Auto) 0.1 Nucleated RBC % (a uto) 0 Nucleated RBCs # 0.0 D-Dimer Sodium 140 Potassium 4.2 Chloride 103 Carbon Dioxide 23 Anion Gap 18.2 BUN 12 Creatinine 0.8 GFR Calculation Not Reportable Glucose 118 H Calculated Osmolal ity 291 Calcium 10.5 Total Bilirubin 0.3 AST 20 ALT 13 Alkaline Phosphata se 102 Troponin T Gen 5 n g/L Troponin T 120 Min [place] Delta Troponin T Troponin T Hi Sens 6Hr Troponin T Hi Sens 6Hr Delta Total Protein 7.5 Albumin 4.5 Globulin 3.0 Lipase 40 TSH SARS-CoV-2 Ag (Rap id) Addt'l Data from Hospital Stay: Laboratory Results WBC 8.0 10^3/uL (4.0- 10.0) 01/02/21 20:00 RBC 4.72 10^6/uL (4.1 -5.3) 01/02/21 20:00 Hgb 14.8 g/dL (11.5-1 5.3) 01/02/21 20:00 Hct 44.9 % (37.0-47.0 ) 01/02/21 20:00 MCV 95.1 fl (81-99) 01/02/21 20:00 MCH 31.4 pg (28.0-34. 0) 01/02/21 20:00 MCHC 33.0 g/dL (30.0-3 6.0) 01/02/21 20:00 RDW 12.6 % (12.1-15.1 ) 01/02/21 20:00 Plt Count 236 10^3/cmm (130 -400) 01/02/21 20:00 MPV 10.6 fL (7.4-10.4 ) H 01/02/21 20:00 Neut % (Auto) 34.6 % 01/02/21 20:00 Lymph % (Auto) 55.6 % 01/02/21 20:00 [place] % (Auto) 7.6 % 01/02/21 20:00 Eos % (Auto) 1.1 % 01/02/21 20:00 Baso % (Auto) 1.0 % 01/02/21 20:00 Neut # (Auto) 2.77 10^3/uL (1.8 -7.7) 01/02/21 20:00 Lymph # (Auto) 4.5 10^3/uL (0.8- 4.8) 01/02/21 20:00 [place] # (Auto) 0.6 10^3/uL (0.2- 0.9) 01/02/21 20:00 Eos # (Auto) 0.1 10^3/uL (0.0- 0.8) 01/02/21 20:00 Baso # (Auto) 0.1 10^3/uL (0.0- 0.1) 01/02/21 20:00 Nucleated RBC % (a uto) 0 % 01/02/21 20:00 Nucleated RBCs # 0.0 /100WBC 01/02/21 20:00 D-Dimer <= 0.27 ug/mIFEU (0-0.59) 01/02/21 20:00 Sodium 140 mmol/L (136-1 45) 01/02/21 20:00 Potassium 4.2 mmol/L (3.5-5 .1) 01/02/21 20:00 Chloride 103 mmol/L (98-10 7) 01/02/21 20:00 Carbon Dioxide 23 mmol/L (22-29) 01/02/21 20:00 Anion Gap 18.2 (5-19) 01/02/21 20:00 BUN 12 mg/dL (8-23) 01/02/21 20:00 Creatinine 0.8 mg/dL (0.5-0. 9) 01/02/21 20:00 GFR Calculation Not Reportable 01/02/21 20:00 Glucose 118 mg/dL (65-115 ) H 01/02/21 20:00 Calculated Osmolal ity 291 mOsm/kg (285- 295) 09/10/21 20:00 Calcium 10.5 mg/dL (8.5-1 0.5) 01/02/21 20:00 Total Bilirubin 0.3 mg/dL (0.15-1 .2) 01/02/21 20:00 AST 20 U/L (0-32) 01/02/21 20:00 ALT 13 U/L (0-33) 01/02/21 20:00 Alkaline Phosphata se 102 IU/L (35-105) 01/02/21 20:00 Troponin T Gen 5 n g/L 11 ng/L (0-10) H 01/02/21 20:00 Troponin T 120 Min [place] 10.54 ng/L (0-10) H 01/02/21 22:53 Delta Troponin T Not Reportable 01/02/21 22:53 Troponin T Hi Sens 6Hr 11.14 ng/L (0-10) H 01/03/21 04:40 Troponin T Hi Sens 6Hr Delta Not Reportable 01/03/21 04:40 Total Protein 7.5 g/dL (6.6-8.7 ) 01/02/21 20:00 Albumin 4.5 g/dL (3.5-5.2 ) 01/02/21 20:00 Globulin 3.0 g/dL (1.3-4.6 ) 01/02/21 20:00 Lipase 40 U/L (13-60) 01/02/21 20:00 TSH 1.97 uIU/mL (0.27 -4.20) 01/03/21 04:40 SARS-CoV-2 Ag (Rap id) Negative (Negati ve) 01/02/21 21:[address] 01/02/21 20:36 IMPRESSION: 1. Negative for acute intracranial abnormality. 2. Negative for intracranial mass. Radiation Dose CTDIVOL = (mGy): DLP = 772.99 (mGy-cm) Head/Neck CTA 01/02/21 20:36 IMPRESSION: No carotid artery stenosis or vessel occlusion in the neck. COMMENTS: Consistent with the [employer]'s Incidental Findings Committee white paper (J Am Destiny Radiol 2015): In patients aged 35 years and older with an incidental thyroid nodule equal to or greater than 1.[address], MRI or extrathyroidal US, further evaluation with dedicated thyroid US is recommended for patients with normal life expectancy and without comorbidities. For smaller nodules without suspicious features, no further evaluation or follow up is recommended. REFERENCES: NASCET CRITERIA. The degree of internal carotid artery stenosis is based on NASCET criteria. Normal is no stenosis. Mild is less than 50% stenosis. Moderate is 50-69% stenosis. Severe is 70% to 99% stenosis. Total occlusion is no detectable patent lumen. Radiation Dose CTDIVOL = (mGy): DLP = 1906.41~1906.41 (mGy-cm) Chest X-Ray 01/02/21 23:38 IMPRESSION: No acute findings. Vitals: Last Vital Signs Temp 98.2 F 01/03/21 07:51 Pulse 74 01/03/21 07:51 Resp 15 01/03/21 07:51 BP 136/60 01/03/21 07:51 Pulse Ox 96 01/03/21 07:51 Discharge Plan Discharge Patient Disposition: Home Condition: Stable Prescriptions: New amlodipine 10 mg Tablet 10 mg PO DAILY 30 Days Qty: 30 RF: 0 Continued vitamin A-vit C-vit E-zinc-Cu Tablet 2 tab PO BID RF: 0 Tylenol 325 mg Tablet 325 - 650 mg PO QID PRN (Reason: Pain) RF: 0 Multivitamin Women 50 Plus 8 mg iron-400 mcg-300 mcg Tablet 1 tab PO DAILY RF: 0 Aricept 5 mg tablet 5 mg PO BEDTIME RF: 0 Discharge Orders: Discharge Order (Routine); Ordered 01/03/21 Ordered By: Roger Diallo Other Ambulatory Orders: ECG holter monitor 24 hour (Routine) Timeframe: 2 Weeks Facility: [facility] - Location: Cardiac Diagnostic Laboratory Ordered By: Roger Diallo Referrals: Pearl Brink DO [Primary Care Provider] - 2 weeks ([facility] will be calling to schedule a Hospital followup with Dr. Brink to be seen in 2 weeks. If you don't hear from them by Tuesday afternoon, please give them a call. Thank you) Discharge Diet: Cardiac Discharge Activity: Resume usual activity Patient Instructions: Amlodipine (By mouth), Syncope, Opioid Safety Activity Restrictions/Additional Instructions: Please continue to check your blood pressure twice daily at home and maintain a blood pressure diary. Please follow-up with a primary care provider within next 2 weeks with a blood pressure diary to for further adjustment of antihypertensives. [facility] will be calling to schedule a time to stop by and be fitted with an ECG Holter Monitor. If you don't hear from them by Tuesday, please give them a call at [phone]. Thank you Discharge Attestations Time Spent in Discharge Care*: greater than 30 min Specific Discharge Activities: educating patient, educating and/or supporting family/caregiver, discussing with pcp/other providers, discussing with case m anagers/social workers/dc planners, documenting/other paperwork and evaluating patient/reviewing data Status at Discharge: Cognitive status at discharge: cognitively intact , Behavioral status at discharge: cooperative , Functional status at discharge: independent ambulation Overall status at discharge: patient is back to baseline Quality Metrics Clinical Quality Measures During this hospital stay, did patient experience: None Coding Level of Care Code Acute Chg FW DC note Diagnoses Syncope and collapse R55
[2021-01-03 11:38] VITALS: BP 136/60; PULSE 74; RESP 15; TEMP 36.8; O2SAT 96
--- NOTE | 2021-01-03 13:23 | PC.NURSE ---
Discharge Note Patient discharged to [home] via [w/c] accompanied by [daughter]. Discharge instructions reviewed with patient and/or hvac sales representative. Mobile pharmacy medications and/or prescriptions provided. Belongings/home medications returned.
[2021-01-03 22:23] LABS: Glucose Point of Care 113 mg/dL (70-110)
--- NOTE | 2021-01-03 23:38 | USCV_ITS ---
Taran Montenegro Age: 80 Gender: F : 1940 Exam Date: 01/03/2021 09:09 Ordering Phys: Marleny Varma MD Technologist: Saskia Finley [place] [facility] [facility] [place]: Recurrent syncope BP: 168 / 75 HR: 70 Rhythm: Sinus Technical Quality: Fair MEASUREMENTS (Male / Female) Normal Values 2D ECHO LV Diastolic Diameter PLAX 4.3 cm 4.2 - 5.9 / 3.9 - 5.3 cm LV Systolic Diameter PLAX 2.1 cm LV Chamber Size 3.9 cm IVS Diastolic Thickness 1.4 cm 0.6 - 1.0 / 0.6 - 0.9 cm IVS Systolic Thickness 1.6 cm LVPW Diastolic Thickness 0.8 cm 0.6 - 1.0 / 0.6 - 0.9 cm LVPW Systolic Thickness 0.8 cm RV Chamber Size 2.0 cm LVOT Diameter 1.8 cm LV Ejection Fraction 2D Teich 81.7 % LV Ejection Fraction MOD 2C 77.5 % LV Ejection Fraction 2C AL 79.2 % LA Diameter 3.0 cm LA Width 2.5 cm LA Height 4.6 cm RA Width 2.9 cm RA Height 4.2 cm Aorta at Sinotubular Diameter 2.5 cm M-MODE LV Diastolic Diameter MM 4.4 cm 4.2 - 5.9 / 3.9 - 5.3 cm LV Systolic Diameter MM 2.8 cm LV Ejection Fraction MM Teich 66.0 % IVS Diastolic Thickness MM 0.8 cm 0.6 - 1.0 / 0.6 - 0.9 cm IVS Systolic Thickness MM 1.2 cm LVPW Diastolic Thickness MM 0.9 cm 0.6 - 1.0 / 0.6 - 0.9 cm LVPW Systolic Thickness MM 1.6 cm Aortic Annulus Diameter 3.1 cm LA Ao Ratio MM 1.1 DOPPLER AV Peak Velocity 113.0 cm/s LVOT Peak Velocity 102.0 cm/s AV Area Cont Eq vti 2.1 cm squared AV Area Cont Eq pk 2.2 cm squared MV Area PHT 3.3 cm squared Mitral E to A Ratio 0.8 MV E' Velocity 37.0 cm/s Mitral E to MV E' Ratio 6.7 Mitral E to LV E' Lateral Ratio 5.5 Mitral E to LV E' Septal Ratio 8.4 TR Peak Velocity 257.4 cm/s TR Peak Gradient 26.5 mmHg TR Mean Velocity 214.8 cm/s TR Mean Gradient 18.8 mmHg TR Velocity Time Integral 64.4 cm TV Peak E Velocity 43.0 cm/s PV Peak Velocity 93.0 cm/s RV Acceleration Time 0.1 s RV Ejection Time 0.3 s RV AcT/ET 0.5 FINDINGS Left Ventricle Normal left ventricular size, systolic function and wall thickness, with no regional wall motion abnormalities. Left ventricular ejection fraction is estimated at 73 %. Normal diastolic function. Right Ventricle Normal right ventricular size and systolic function. RVSP could not be calculated due to incomplete tricuspid regurgitation velocity profile. Right Atrium Normal right atrial size. Left Atrium Upper normal left atrial size. Mitral Valve Structurally normal mitral valve. No mitral valve stenosis. Trace mitral valve regurgitation. Aortic Valve Structurally normal trileaflet aortic valve. No aortic valve stenosis. No aortic valve regurgitation. Tricuspid Valve Structurally normal tricuspid valve. No tricuspid valve stenosis. Trace to mild tricuspid valve regurgitation. Pulmonic Valve Pulmonic valve not well visualized. No significant pulmonary valve regurgitation. Pericardium No pericardial effusion. Aorta Normal sized aortic root. CONCLUSIONS 1. Normal left ventricular size, systolic function and wall thickness, with no regional wall motion abnormalities. Left ventricular ejection fraction is estimated at 73 %. Normal diastolic function. 2. Normal right ventricular size and systolic function. 3. Trace to mild tricuspid valve regurgitation. 4. No prior similar studies to compare. Hawa Manzanares MD (Electronically Signed) Final Date: 03 January 2021 14:59 S
--- NOTE | 2021-01-05 09:11 | PC.SOCIAL ---
discharge follow up made, spoke with daughter, gave follow up appointment date and time. patient will see Dr. Deleon due to Dr. Brink being booked. daughter reports after pt took amlodipine she seemed to have a reaction, advised not to take the medication but to closely monitor blood pressures and be recording.
== END 2021-01-03 13:00 | disposition home or self-care (01) ==
LOC: ER 21:39 → CSU 22:32
PROVIDERS: Admitting Provider Student in an Organized Health Care Education/Training Program; Emergency Provider Emergency Medicine; PCP Family Medicine; Visit Provider Student in an Organized Health Care Education/Training Program
DX: R55 Syncope and collapse (principal); F03.90 Unspecified dementia, unspecified severity, without behavioral disturbance, psychotic disturbance, mood disturbance, and anxiety; M19.90 Unspecified osteoarthritis, unspecified site; Z82.49 Family history of ischemic heart disease and other diseases of the circulatory system; Z83.3 Family history of diabetes mellitus
CPT/HCPCS: 36415; 36416; 70450; 70496; 70498; 71045; 80053; 82962; 83690; 84443; 84484; 85025; 85378; 87426; 93005; 93306; 96360; 96372; 99285; G0378; J1650; J7030; Q9967

== ENCOUNTER → 2021-01-08 15:55 | Outpatient (BNVA) | payer MEDICARE, BC, SELFPAY | PROVIDERS: PCP Family Medicine; Visit Provider Family Medicine | DX: R30.0 Dysuria (principal) | CPT/HCPCS: 81000; 87086 ==

== ENCOUNTER → 2021-01-23 09:32 | Outpatient (BNVA) | payer MEDICARE, BC, SELFPAY | PROVIDERS: PCP Family Medicine; Visit Provider Family Medicine | DX: M25.512 Pain in left shoulder (principal); F03.90 Unspecified dementia, unspecified severity, without behavioral disturbance, psychotic disturbance, mood disturbance, and anxiety; J30.2 Other seasonal allergic rhinitis; R41.3 Other amnesia; I10 Essential (primary) hypertension; Z68.25 Body mass index [BMI] 25.0-25.9, adult; Z71.89 Other specified counseling | CPT/HCPCS: 80053; 80061; 82043; 85025 ==

== ENCOUNTER 2021-01-29 08:09 | Outpatient (CLI) | payer MEDICARE, BC, SELFPAY ==
--- NOTE | 2021-01-29 08:45 | MR_ITS ---
WS: [id number] MRI HEAD WITH CONTRAST TECHNIQUE: Sagittal T1, T2 axial, T2 axial FLAIR, axial susceptibility weighted imaging, axial diffus ion weighted images, and coronal T2 images were obtained. Pre and post-T1 axial and post T1 coronal i mages. ADC and FSPGR images. CLINICAL INFORMATION: mental status change COMPARISON: CT January 02, 2021 FINDINGS: No evidence of restricted diffusion to suggest acute ischemia. Ventricular system and basal cisterns are patent. Mild small vessel changes. Moderate parenchymal volume loss. Normal posterior fossa. Norm al vascular flow voids at the skull base. No extra-axial fluid collections. No evidence of mass or ma ss effect. Mild mucosal thickening in the paranasal sinuses. Mastoid air cells well aerated. Normal optic chiasm and pituitary infundibulum. Moderate to advanced symmetric atrophy temporal lobes and hippocampal formations. No abnormal gadolinium enhancement. Normal visualized dural venous sinus es. MR/MR head wo/w con [id number] IMPRESSION: 1. No evidence of restricted diffusion to suggest acute ischemia. 2. Mild small vessel changes with moderate parenchymal volume loss. 3. Moderate to advanced symmetric atrophy temporal lobes hippocampal formation s. 4. No hemosiderin on the susceptibly weighted images. 5. No abnormal gadolinium enhancement. 6. No other significant findings.
[2021-01-29] MEDS: gadobenate dimeglumine 20 mL vial IV (09:48)
== END 2021-01-29 08:10 | disposition home or self-care (01) ==
LOC: RADSHAW 08:14
PROVIDERS: PCP Family Medicine; Visit Provider Family Medicine
DX: R41.3 Other amnesia (principal); G31.9 Degenerative disease of nervous system, unspecified
CPT/HCPCS: 70553; A9577

== ENCOUNTER → 2021-08-21 08:34 | Outpatient (BNVA) | payer MEDICARE, BC, SELFPAY | PROVIDERS: PCP Family Medicine; Visit Provider Family Medicine | DX: I10 Essential (primary) hypertension (principal); M17.12 Unilateral primary osteoarthritis, left knee; G30.1 Alzheimer's disease with late onset; F02.80 Dementia in other diseases classified elsewhere, unspecified severity, without behavioral disturbance, psychotic disturbance, mood disturbance, and anxiety | CPT/HCPCS: 80053 ==

== ENCOUNTER → 2022-02-22 09:24 | Outpatient (BNVA) | payer MEDICARE, BC, SELFPAY | PROVIDERS: PCP Family Medicine; Visit Provider Family Medicine | DX: I10 Essential (primary) hypertension (principal); F02.80 Dementia in other diseases classified elsewhere, unspecified severity, without behavioral disturbance, psychotic disturbance, mood disturbance, and anxiety; G30.1 Alzheimer's disease with late onset; K59.09 Other constipation; M17.0 Bilateral primary osteoarthritis of knee | CPT/HCPCS: 80053; 80061; 85025 ==

== ENCOUNTER 2022-05-17 09:00 | Outpatient (CLI) | payer MEDICARE, BC, SELFPAY ==
--- NOTE | 2022-05-17 09:15 | XR_ITS ---
WS: [id number] Exam: XR lumbar spine 2-3V* [id number] Date/Time of Exam: 05/17/2022 9:16 AM Reason For Exam: chronic low back pain No acute fracture or dislocation. Degenerative disc narrowing from L1 to S1. Moderate levoscoliosis. Facet DJD and mild spondylosis at all levels. XR/XR lumbar spine 2-3V* [id number] IMPRESSION: 1. Moderately advanced degenerative changes. No fracture or malalignment. 2. Moderate levoscoliosis.
== END 2022-05-17 09:01 | disposition home or self-care (01) ==
LOC: RAD 09:07
PROVIDERS: PCP Family Medicine; Visit Provider Family Medicine
DX: G89.29 Other chronic pain (principal); M54.50 Low back pain, unspecified
CPT/HCPCS: 72100

== ENCOUNTER 2022-08-04 12:58 | Outpatient (RCR) | payer MEDICARE, BC, SELFPAY | END 2022-08-22 23:59 | disposition home or self-care (01) | LOC: SPT 12:58 | PROVIDERS: PCP Family Medicine; Visit Provider Family Medicine | DX: G89.29 Other chronic pain (principal); M54.50 Low back pain, unspecified | CPT/HCPCS: 97110; 97161 ==

== ENCOUNTER 2022-08-23 06:00 | Outpatient (RCR) | payer MEDICARE, BC, SELFPAY | END 2022-09-22 23:59 | disposition home or self-care (01) | LOC: SPT 06:00 | PROVIDERS: PCP Family Medicine; Visit Provider Family Medicine | DX: M54.50 Low back pain, unspecified (principal); G89.29 Other chronic pain | CPT/HCPCS: 97110; G0283 ==

== ENCOUNTER 2022-09-10 08:33 | Outpatient (CLI) | payer MEDICARE, BC, SELFPAY ==
--- NOTE | 2022-09-10 08:45 | MR_ITS ---
WS: [id number] MRI LUMBAR SPINE NONCONTRAST TECHNIQUE: Sagittal T1, T2 and STIR imaging. Axial T1 and T2 imaging. CLINICAL INFORMATION: ddd lumbar spine COMPARISON: None. FINDINGS: Counting performed from the craniocervical junction. L5 is partially sacralized. Mild lumbar curve. No acute compression. L5 is sacralized in the LEFT. Mild residual disc space. T12-L1: Mild annular bulging. Mild LEFT and no RIGHT foraminal narrowing. Mild facet arthropathy. L1-L2: Spinal canal and foramen are patent. Mild facet arthropathy. L2-L3: Mild annular bulging. Slight narrowing of the RIGHT greater than LEFT subarticular recess. Mil d bilateral foraminal narrowing. L3-L4: Mild annular bulging with impingement on the RIGHT greater than LEFT subarticular recess. Mode rate facet arthropathy. Moderate RIGHT and no central LEFT foraminal narrowing. L4-L5: Mild annular bulging with a shallow central protrusion. Moderate central canal stenosis with i mpingement on the traversing LEFT greater than RIGHT L5 nerve roots. Moderate facet arthropathy. Mild RIGHT foraminal narrowing. LEFT foramen is patent. L5-S1: L5 is sacralized. Mild LEFT and no significant RIGHT foraminal narrowing. Slight impingement o n the traversing LEFT greater than RIGHT S1 nerve roots. Moderate LEFT facet arthropathy. Visualized pelvic bony structures: Normal. Paravertebral soft tissues: Normal. Adrenal glands are normal. Tarlov cysts in the sacrum. MR/MR lumbar spine wo con* [id number] IMPRESSION: 1. Lumbar scoliosis. No acute compression. 2. Counting performed from the craniocervical junction. L5 is partially sacral ized. 3. Shallow central disc protrusion L4-L5 impinges the traversing L5 nerve root s bilaterally. Moderate central canal stenosis. Mild RIGHT foraminal narrowing. . 4. Disc bulging L3-L4 with impingement traversing RIGHT L4 nerve root with mil d central canal stenosis. Moderate RIGHT foraminal narrowing.
== END 2022-09-10 08:34 | disposition home or self-care (01) ==
LOC: RAD 08:38
PROVIDERS: PCP Family Medicine; Visit Provider Family Medicine
DX: M51.36 Other intervertebral disc degeneration, lumbar region (principal)
CPT/HCPCS: 72148

== ENCOUNTER → 2023-03-11 12:08 | Outpatient (BNVA) | payer MEDICARE, BC, SELFPAY | PROVIDERS: PCP Family Medicine; Visit Provider Family Medicine | DX: I10 Essential (primary) hypertension (principal) | CPT/HCPCS: 80053; 80061; 82043; 85025 ==

== ENCOUNTER → 2023-05-05 10:32 | Outpatient (BNVA) | payer MEDICARE, BC, SELFPAY | PROVIDERS: PCP Family Medicine; Referring Provider Family Medicine; Visit Provider Anesthesiology Pain Medicine | DX: G89.29 Other chronic pain; M47.816 Spondylosis without myelopathy or radiculopathy, lumbar region; M48.061 Spinal stenosis, lumbar region without neurogenic claudication | CPT/HCPCS: 99204 ==

== ENCOUNTER → 2023-06-14 08:59 | Outpatient (BNVA) | payer MEDICARE, BC, SELFPAY | PROVIDERS: PCP Family Medicine; Visit Provider Anesthesiology Pain Medicine | DX: G89.29 Other chronic pain; M47.816 Spondylosis without myelopathy or radiculopathy, lumbar region | CPT/HCPCS: 99214 ==

== ENCOUNTER → 2023-07-13 11:03 | Outpatient (BNVA) | payer MEDICARE, BC, SELFPAY | PROVIDERS: PCP Family Medicine; Visit Provider Anesthesiology Pain Medicine | DX: M19.019 Primary osteoarthritis, unspecified shoulder (principal); G89.29 Other chronic pain; M47.816 Spondylosis without myelopathy or radiculopathy, lumbar region; M25.511 Pain in right shoulder | CPT/HCPCS: 73030; 99214 ==

== ENCOUNTER → 2023-07-21 08:54 | Outpatient (BNVA) | payer MEDICARE, BC, SELFPAY | PROVIDERS: PCP Family Medicine; Visit Provider Anesthesiology Pain Medicine | DX: G89.29 Other chronic pain; M19.011 Primary osteoarthritis, right shoulder; M47.816 Spondylosis without myelopathy or radiculopathy, lumbar region | CPT/HCPCS: 20610; 99214; J1030; J3490 ==

== ENCOUNTER → 2023-09-12 07:54 | Outpatient (BNVA) | payer MEDICARE, BC, SELFPAY | PROVIDERS: PCP Family Medicine; Visit Provider Family Medicine | DX: R55 Syncope and collapse | CPT/HCPCS: 93005 ==

== ENCOUNTER → 2023-09-12 07:54 | Outpatient (BNVA) | payer MEDICARE, BC, SELFPAY | PROVIDERS: PCP Family Medicine; Visit Provider Family Medicine | DX: I10 Essential (primary) hypertension (principal) | CPT/HCPCS: 80053 ==

== ENCOUNTER → 2023-09-20 09:00 | Outpatient (BNVA) | payer MEDICARE, BC, SELFPAY | PROVIDERS: PCP Family Medicine; Visit Provider Anesthesiology Pain Medicine | DX: Z53.9 Procedure and treatment not carried out, unspecified reason (principal) | CPT/HCPCS: 1008F; 1125F; 1160F; 99212 ==

== ENCOUNTER 2023-09-23 08:27 | Outpatient (CLI) | payer MEDICARE, BC, SELFPAY ==
--- NOTE | 2023-09-23 | ECG_ITS ---
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 Interpretive Statements NAME OF STUDY: LEXISCAN SESTAMIBI STRESS TEST INDICATION: [Syncope, ] Procedure: At the baseline, the blood pressure was 204/80 mmHg with a heart rate of 53 bpm. The electrocardiogram showed sinus bradycardia, left axis deviation with normal ST and T's. The Lexiscan was infused over a period of 20 seconds. A total of 0.4 mg of Lexiscan was infused. The stress phase was continued for a total of 5 minutes. Heart rate was at the end of stress phase was 67 bpm and a blood pressure of 161/70 mmHg. The EKG at the peak infusion revealed normal sinus rhythm with no significant ST-T wave changes. Sestamibi was injected 20 seconds after the Lexiscan infusion. Blood pressure at the end of recovery phase was 148/67 mmHg with a heart rate of 63 bpm. Conclusion: 1. Normal EKG response to Lexiscan infusion 2. No Lexiscan induced chest pain or cardiac arrhythmia. 3. Normal blood pressure and heart rate response. 4. Sestamibi/sestamibi perfusion scan pending; see separate report. Electronically Signed On 10-10-2023 8:43:11 CDT by Abdullahi Leonardo M.D. [id number]
[2023-09-23 09:20] VITALS: BMI 26.3
--- NOTE | 2023-09-23 09:20 | NMCV_ITS ---
NM freddy perf SPECT r/s* [id number] Taran Montenegro Age: 82 Gender: F : 1940 Exam Date: 09/23/2023 09:36 Ordering Phys: Pearl Brink DO Technologist: GERRY Kramer Exam Location: [facility] Indications: SYNCOPE AND COLLAPSE STRESS TEST Please see separate stress test report in [facility] for full findings IMAGE PROTOCOL Rest/Stress 1 Lexiscan Day Radiopharmaceutical Dose (mCi) Administration Site Administered by Rest: Tc-99m 10.4 IV GERRY Tobias Sestamibi Stress:Tc-99m 32.2 IV GERRY Tobias Sestamibi Rest: 23-Sep-2023 60 Discovery 630 Stress: 23-Sep-2023 30 Discovery 630 0.4mg Lexiscan. Supine position only as patient was unable to lay prone. SPECT RESULTS Technical Quality: Excellent Raw Data Analysis: Normal Image Corrections: No attenuation or motion correction applied Summed Stress Score: 9 Summed Rest Score: 1 Summed Difference Score: 8 PERFUSION FINDINGS There is partially reversible, medium sized, perfusion defect of moderate intensity seen in apical, apical inferior and inferolateral brown. 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 FUNCTIONAL RESULTS (calculated via Gated SPECT) Stress Image LV EF (%): 74 Stress EDV (mL):65 TID: 1.08 Stress ESV (mL):17 FUNCTIONAL FINDINGS: There is normal left ventricular systolic function. IMPRESSIONS 1. 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 2. LV systolic function is normal Abdulalhi Leonardo MD (Electronically Signed) Final Date: 26 September 2023 11:19 S
[2023-09-23] MEDS: regadenoson 0.4 Mg/5 ml Syringe 0.400000000000000022 MG IVP (10:45)
[2023-09-23 10:51] VITALS: BP 148/67; PULSE 63
== END 2023-09-23 08:28 | disposition home or self-care (01) ==
PROVIDERS: PCP Family Medicine; Visit Provider Family Medicine
DX: R55 Syncope and collapse (principal); R94.39 Abnormal result of other cardiovascular function study
CPT/HCPCS: 36415; 78452; 93017; 96374; A9500; J2785

== ENCOUNTER → 2024-05-16 10:55 | Outpatient (BNVA) | payer MEDICARE, BC, SELFPAY | PROVIDERS: PCP Family Medicine; Visit Provider Family Medicine | DX: I10 Essential (primary) hypertension (principal) | CPT/HCPCS: 80053; 80061; 85025 ==

== ENCOUNTER → 2025-03-07 11:42 | Outpatient (BNVA) | payer MEDICARE, BC, SELFPAY | PROVIDERS: PCP Family Medicine; Visit Provider Family Medicine | DX: I10 Essential (primary) hypertension (principal) | CPT/HCPCS: 80048 ==